=== PATIENT | female | born 1945 | race Asian ===

== ENCOUNTER 2019-03-16 17:03 | Inpatient (IN) | payer MEDICAID, MEDICARE ==
[~2019-03-16] VITALS: Ht 152.4 cm; Wt 69.5 kg
--- NOTE | 2019-03-16 17:33 | NUR ---
CALLED FROM [facility]- NO ANSWER
[2019-03-16 18:37] VITALS: Ht 152.4 cm; Wt 69.5 kg
[2019-03-16 21:00] LABS: BASOPHIL % 0.3 % (0-2); PLATELET COUNT 408 x10^3mcL (130-400); RED CELL DISTRIBUTION WIDTH 14.3 % (11.5-14.5)
[2019-03-16 21:09] LABS: ALBUMIN 3.4 g/dL (3.4-5.0); ALKALINE PHOSPHATASE 79 U/L (46-116); ALT/SGPT 33 U/L (14-59); AST/SGOT 16 U/L (15-37); BILIRUBIN TOTAL 0.3 mg/dL (0.20-1.00); CALCIUM 8.3 mg/dL (8.5-10.1); CARBON DIOXIDE 27.6 mmol/L (21-32); CHLORIDE SERUM 87 mmol/L (98-107); CHOLESTEROL 156 mg/dL (<200); CREATININE SERUM 0.6 mg/dL (0.6-1.0); GLUCOSE SERUM 116 mg/dL (74-106); HDL CHOLESTEROL 50 mg/dL (40-60); POTASSIUM SERUM 4.2 mmol/L (3.5-5.1)
[2019-03-16 21:15] LABS: SODIUM SERUM 123 mmol/L (136-145)
[2019-03-16 22:12] LABS: UA SPECIFIC GRAVITY <=1.005 (1.005-1.035); microscopic required? YES; urine erythrocyte NEGATIVE (NEGATIVE)
--- NOTE | 2019-03-17 00:55 | NUR ---
RECEIVED PT FROM ED VIA [facility], ACCOMPANIED BY RN. AA&O X4. NO C/O HEADACHE/DIZZINESS. NO SOB NOTED. BREATHING EVEN AND UNLABORED ON ROOM AIR. NO C/O CHEST PAIN. NO DISTRESS NOTED. AMBULATES WITH CANE. SAFETY MEASURES IN PLACE. DEMONSTRATED HOW TO USE THE CALL LIGHT. CALL LIGHT WITHN REACH. SON HELPED WITH TRANSLATION.
[2019-03-17 02:02] VITALS: BP 153/65
[2019-03-17 04:32] VITALS: BP 144/68
[2019-03-17 07:49] LABS: CHLORIDE SERUM 91 mmol/L (98-107); CREATININE SERUM 0.6 mg/dL (0.6-1.0); GLUCOSE SERUM 123 mg/dL (74-106); POTASSIUM SERUM 3.7 mmol/L (3.5-5.1); SODIUM SERUM 129 mmol/L (136-145)
[2019-03-17 07:50] LABS: BASOPHIL % 0.4 % (0-2); RED CELL DISTRIBUTION WIDTH 14.2 % (11.5-14.5)
[2019-03-17 07:56] LABS: PLATELET COUNT 427 x10^3mcL (130-400)
--- NOTE | 2019-03-17 08:00 | NUR ---
SHIFT ASSESSMENT DONE. PATIENT A/A/OX4; CYMRAES SPEAKING. TELE#18; A FIB; HR = 80'S TO 90'S. DENIED CHEST PAIN. BREATHING SOUND CLEAR WILL. O2 SAT 98% ON RA. DENIED PAIN. HAD BM YESTERDAY. IVHL'D TO L HAND. HX OF WILL KNEE SX. AMBULATED W/ CANE. GAIT SLOWLY. TRACE EDEMA TO BLE. TOLERATED CARDIAC DIET. CALL LIGHT IN REACH.
[2019-03-17] MEDS ORDERED: CEPHALEXIN500 MG PO (08:39)
[2019-03-17] MEDS ORDERED: D3-50001 TAB PO (08:40)
[2019-03-17] MEDS ORDERED: ASPIR 8181 MG PO (08:41)
[2019-03-17] MEDS ORDERED: TOPROL XL25 MG PO (08:44)
[2019-03-17] MEDS ORDERED: NATURE'S BLEND F1 MG PO (08:45)
[2019-03-17] MEDS ORDERED: METFORMIN HYDR500 M1 PO (08:47)
[2019-03-17 08:48] VITALS: BP 173/69
[2019-03-17] MEDS ORDERED: NOR10 PO (08:48)
[2019-03-17] MEDS ORDERED: LOSARTAN POTASS1 TA6 PO (08:49)
[2019-03-17 12:28] VITALS: BP 128/68
--- NOTE | 2019-03-17 13:00 | NUR ---
DR. MALLOY AND DR. MARROQUIN SAW PATIENT. NEW ORDER WRITTEN AND CARRIED OUT.
[2019-03-17 17:32] VITALS: BP 128/77
--- NOTE | 2019-03-17 19:00 | NUR ---
CONDITION STABLE. B/P = 128/68; TOLERATED DIET. BM TODAY. VOID FREELY. IVJUANIS'D TO Marcie HAND. ENDORSED CARE TO [facility] NURSE.
--- NOTE | 2019-03-17 19:35 | NUR ---
RECEIVED REPORT FROM DAY SHIFT RN. PT RESTING IN BED COMFORTABLY. NO SOB NOTED ON ROOM AIR. BREATHING EVEN AND UNLABORED. NO C/O HEADACHE/DIZZINESS. NO C/O CHEST PAIN. IV TO LEFT HAND, INTACT. SAFETY MEASURES IN PLACE. BED IN LOWEST POSITION. SIDE RAILS UP X2 WITH PADS. INSTRUCTED PT TO USE THE CALL LIGHT FOR ASSISTANCE. CALL LIGHT WITHIN EASY REACH. SON AT BEDSIDE.
[2019-03-17 20:40] VITALS: BP 137/66
--- NOTE | 2019-03-17 21:37 | NUR ---
PT C/O HEADACHE 09/17. MEDICATED WITH TYLENOL.
--- NOTE | 2019-03-18 00:16 | NUR ---
PT RESTING WITH EYES CLOSED. BREATHING EVEN AND UNLABORED ON ROOM AIR. CALL LIGHT WITHIN REACH. CANE AT BEDSIDE. WILL CONTINUE TO MONITOR.
[2019-03-18 04:53] VITALS: BP 156/76
--- NOTE | 2019-03-18 06:14 | NUR ---
PT RESTED IN INTERVALS DURING SHIFT. NO SOB ON ROOM AIR. DENIES HEADACHE OR DIZZINESS AT THIS TIME. NO SEIZURES NOTED THROUGHOUT SHIFT. AMBULATES TO THE BATHROOM WITH CANE. SAFETY MEASURES MAINTAINED. SIDE RAIL PADS IN PLACE. CALL LIGHT WITHIN EASY REACH. WILL CONTINUE TO MONITOR AND ENDORSE CARE TO DAY SHIFT RN.
[2019-03-18 07:12] LABS: BASOPHIL % 0.4 % (0-2)
[2019-03-18 07:21] LABS: PLATELET COUNT 450 x10^3mcL (130-400); RED CELL DISTRIBUTION WIDTH 14.8 % (11.5-14.5)
--- NOTE | 2019-03-18 07:50 | NUR ---
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 DENIES CHEST PAIN. CONT TO MONITOR.
[2019-03-18 08:50] VITALS: BP 150/69
[2019-03-18 09:49] LABS: CALCIUM 9.2 mg/dL (8.5-10.1); CARBON DIOXIDE 28.8 mmol/L (21-32); CHLORIDE SERUM 94 mmol/L (98-107); CREATININE SERUM 0.7 mg/dL (0.6-1.0); GLUCOSE SERUM 133 mg/dL (74-106); SODIUM SERUM 132 mmol/L (136-145)
--- NOTE | 2019-03-18 09:50 | NUR ---
PATIENT SAT UP AT SIDE OF BED, NO COMPLAIN, TELE AFIB HR 103. ALL PO MEDS ADMINISTERED BY [facility] STUDENT NURSE. PATIENT TOLERATED WELL. DTR ON THE PHONE AND RN UPDATE POC AND PATIENT'S CONDITION.
[2019-03-18 10:38] LABS: ALBUMIN 3.5 g/dL (3.4-5.0); BILIRUBIN DIRECT 0.07 mg/dL (0.0-0.2); BILIRUBIN TOTAL 0.3 mg/dL (0.20-1.00); PHOSPHOROUS 2.9 mg/dL (2.5-4.9)
[2019-03-18 10:44] LABS: TOTAL PROTEIN, SERUM 8.3 g/dL (6.4-8.2)
--- NOTE | 2019-03-18 11:30 | NUR ---
PATIENT SAT UP AT SIDE OF BED, TECH CALL INFORM RN PATIENT HAS PAUSE, PATIENT IS ASYMPTOMATIC AND REPORT NO CHEST PAIN, CONT TO MONITOR AND WILL REPORT TO DR. MARROQUIN.
[2019-03-18 12:38] VITALS: BP 129/62
--- NOTE | 2019-03-18 15:25 | NUR ---
PATIENT BACK FROM [facility], NO COMPLAIN. SON AT BEDSIDE HELP WITH TRANSLATE, LEVAQUIN IVPB INFUSING AT 100ML/HR; UPDATE PER DR. MARROQUIN PATIENT MAY GO HOME TOMORROW. DR. MARROQUIN WAS MADE AWARE PATIENT HAS EPISODE AFIB RVR HR 151 AND PAUSE 1.[address] MARROQUIN IS OKAY.
--- NOTE | 2019-03-18 16:24 | NUR ---
PATIENT RESTING IN BED NO COMPLAIN, NO DISTRESS NOTED. BS 121 NO COVERAGE NEEDED. CALL LIGHT WITHIN REACH.
[2019-03-18 16:25] VITALS: BP 134/86
--- NOTE | 2019-03-18 16:53 | NUR ---
PATIENT RESTING IN BED NO COMPLAIN, METFORMIN AND XARELTO PO ADMINISTERED. PATIENT TOLERATED WELL. NEEDS MET. CALL LIGHT WITHIN REACH.
--- NOTE | 2019-03-18 18:05 | NUR ---
PATIENT SAT UP AT SIDE OF BED, DINNER TRAY SET ON TABLE, NO NEEDS ATTENDED AT THIS TIME. CALL LIGHT WITHIN REACH.
--- NOTE | 2019-03-18 19:30 | NUR ---
RECEIVED REPORT FROM AM NURSE YVAN. PT AAOX4, ABLE TO FOLLOW COMMANDS AND MAKE NEEDS KNOWN. ON TELE#18 READING A-FIB AT 77. DENIES CP/PRESSURE AT THIS TIME. PALPABLE PULSES TO ALL EXTREMETIES. TRACE EDEMA TO BLE NOTED. LUNG SOUNDS CTA. BREATHING EVEN AND UNLABORED ON RA. NO ACUTE DISTRESS NOTED. ABD SOFT AND NONDISTENDED. ACTIVE BS X4 QUAD. DENIES N/V/D. VOIDS FREELY, [facility]. GENERALIZED WEAKNESS. ABD WITH CANE. IV TO LH PATENT AND INTACT. SITE FREE FROM REDNESS AND SWELLING. BED AT LOWEST SETTING. SIDE RAILS X2 UP. CALL LIGHT WITHING REACH. WILL CONT TO MONITOR.
[2019-03-18 22:19] VITALS: BP 130/76
--- NOTE | 2019-03-19 00:05 | NUR ---
PT LAYING DOWN IN BED WITH EYES CLOSED. BREATHING EVEN AND UNLABORED ON RA. NO ACUTE DISTRESS NOTED. BED AT LOWEST SETTING. SIDE RAILS X2 UP. CALL LIGHT WITHING REACH. WILL CONT TO MONITOR.
--- NOTE | 2019-03-19 00:35 | NUR ---
PT C/O INSOMNIA, MEDICATED WITH PRN AMBIEN PER MAR. NO ACUTE DISTRESS NOTED. BED AT LOWEST SETTING. SIDE RAILS X2 UP. CALL LIGHT WITHING REACH. WILL CONT TO MONITOR.
--- NOTE | 2019-03-19 01:35 | NUR ---
PT LAYING DOWN IN BED WITH EYES CLOSED, BREATHING EVEN AND UNLABORED ON RA. NO ACUTE DISTRESS NOTED. WILL CONT TO MONITOR.
[2019-03-19 05:48] VITALS: BP 141/61
--- NOTE | 2019-03-19 06:13 | NUR ---
PT SLEPT AT INTERVALS THROUGHOUT THE NIGHT, BREATHING EVEN AND UNLABORED ON RA. PT CONVERTED FROM A-FIB TO NSR AT 0445. PT DENIES CP/PRESSURE. NO ACUTE DISTRESS NOTED. ALL NEEDS ASSESSED AND ATTENDED TO. BED AT LOWEST SETTING. SIDE RAILS X2 UP. CALL LIGHT WITHING REACH. WILL ENDORSE CARE TO AM NURSE.
--- NOTE | 2019-03-19 07:20 | NUR ---
RECEIVED PATIENT AWAKE/ALERT UP AT SIDE OF BED, NO C/O PAIN. TELE #18 AFIB W/ HR 84 NOTED. IV TO LH INTACT AND SL NOTED. NO SWELLING NOTED. CALL LIGHT WITHIN REACH, CANE NEXT TO PATIENT.
[2019-03-19 08:41] VITALS: BP 152/68
--- NOTE | 2019-03-19 09:26 | NUR ---
PATIENT BACK FROM [facility], VOIDED. NO C/O PAIN. ALL PO MEDS ADMINISTERED AND TOLERATED. NEEDS MET. DR. MALLOY SEEN PATIENT AND PER DR. MALLOY PATIENT IS DISCHARGE TODAY. CALL LIGHT WITHIN REACH.
[2019-03-19 10:23] VITALS: BP 152/68
--- NOTE | 2019-03-19 11:31 | NUR ---
PATIENT SAT UP AT SIDE OF BED, IV TO LH REMOVED W/ CATH INTACT, NO SWELLING NOTED. GAUZES APPLIED TO SITE. TELE BOX #18 GIVE TO [facility].
--- NOTE | 2019-03-19 11:40 | NUR ---
PATIENT ALREADY DRESS AND DTR [place] AT BEDSIDE, DISCHARGE INSTRUCTIONS AND PRESCRIPTION EXPLAINED. INSTRUCT TO F/U WITH PCP 2-3 DAYS. 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 ALL BELONGINGS WITH PATIENT'S FAMILY.
== END 2019-03-19 11:41 | disposition home or self-care (01) | DRG 720 ==
LOC: ED 17:03 → DU 22:23 → EDBEDREQTM 22:54 → EDBEDREQ 22:54 → DU 03-17 00:30
PROVIDERS: Emergency Medicine; Internal Medicine; ADMIT Internal Medicine
DX: A41.9 Sepsis, unspecified organism (principal); E87.2 Acidosis; I48.91 Unspecified atrial fibrillation; E22.2 Syndrome of inappropriate secretion of antidiuretic hormone; E11.9 Type 2 diabetes mellitus without complications; I11.9 Hypertensive heart disease without heart failure; J44.9 Chronic obstructive pulmonary disease, unspecified; Z68.42 Body mass index [BMI] 45.0-49.9, adult; N39.0 Urinary tract infection, site not specified; I25.10 Atherosclerotic heart disease of native coronary artery without angina pectoris
CPT/HCPCS: 82962; 83880; G0378; J0696; J1940; J1956; J7030; J7040; Q0092